=== PATIENT | female | born 1955 ===

== ENCOUNTER → 2023-03-30 14:54 | Outpatient (CLI) | payer MEDICARE, SELFPAY ==
--- NOTE | ~2023-03-30 | MR_ITS ---
EXAMINATION: MR lumbar spine wo con DATE: 03/30/2023 15:23 INDICATION: Lumbar radiculopathy TECHNIQUE: Magnetic resonance imaging (MRI) of the lumbar spine was performed without intravenous con trast. Sequences included sagittal T2-weighted FSE, sagittal T2-weighted FS FSE, sagittal T1-weighted FSE, and axial T2-weighted FSE. COMPARISON: None FINDINGS: Transitional L5 segment which is sacralized bilaterally with 4 more cephalad nonrib-bearing lumbar se gments. 5 degree lower lumbar levocurvature and 11 degrees thoracolumbar dextroscoliosis. 2 mm retrol isthesis L2 on L3, L3 on L4 and 3 mm retrolisthesis L4 on L5. Vertebral body heights are normal. Mode rate to severe right-sided disc height loss at L3-L4. Moderate disc height loss at L2-L3 and L4-L5. M ild to moderate left-sided predominant disc height loss at L1-L2 and mild left-sided disc height loss at T12-L1. Normal disc signal with decreased disc height at L5-S1 which likely developmental related to the sacralization of L5. There is mild fibrovascular degenerative endplate changes at the right p osterior aspect of the L2-L3 and L3-L4 disc spaces. Marrow signal is otherwise unremarkable with no p athologic marrow replacing process. The conus medullaris terminates at L1-L2. There is normal signal in the caudal spinal cord. Paravertebral soft tissues are unremarkable. The following disc levels are specifically discussed: T11-T12: Small left paracentral disc protrusion. There is mild right facet joint osteoarthritis. Ther e is no neural foraminal stenosis. There is minimal central canal stenosis. T12-L1: Small central to left paracentral disc protrusion. There is mild bilateral facet joint osteoa rthritis. There is no neural foraminal stenosis. There is minimal central canal stenosis. L1-L2: Disc is mildly bulging with superimposed annular fissure and to moderate-sized left paracentra l disc extrusion with disc material extending a couple millimeters cephalad and caudal to the level o f the endplates. There is mild bilateral facet joint osteoarthritis. There is mild left neural forami nal stenosis. There is mild central canal stenosis along with mild to moderate the left lateral reces s. L2-L3: Disc is bulging with annular fissure. There is mild hypertrophy of the ligamentum flavum. Ther e is moderate right and mild left facet joint osteoarthritis. There is moderate right and mild left n eural foraminal stenosis. There is mild central canal stenosis and mild narrowing of the left and rig ht lateral recesses. L3-L4: Disc is bulging with annular fissure. There is mild hypertrophy of the ligamentum flavum. Ther e is moderate right and mild to moderate left facet joint osteoarthritis. There is moderate right and mild left neural foraminal stenosis. There is mild central canal stenosis and mild narrowing of the right lateral recess. L4-L5: Disc is bulging with annular fissure. There is mild hypertrophy of the ligamentum flavum. The re is mild bilateral facet joint osteoarthritis. There is mild bilateral neural foraminal stenosis. T here is mild central canal stenosis. L5-S1: The disc does not extend beyond the endplate margin. There is partial fusion across the bilate ral facet joints. There is no neural foraminal stenosis. There is no central canal stenosis. IMPRESSION: 1. Mild S-shaped scoliosis of the lumbar and lower thoracic spine with moderate to severe spondylosis . Reviewed, dictated and finalized at location A. IMPRESSION: 1. Mild S-shaped scoliosis of the lumbar and lower thoracic spine with moderate to severe spondylosis.
== END ==
PROVIDERS: PCP Anesthesiology Pain Medicine; Visit Provider Anesthesiology Pain Medicine
DX: M41.9 Scoliosis, unspecified (principal); M47.26 Other spondylosis with radiculopathy, lumbar region
CPT/HCPCS: 72148